=== PATIENT | female | born 1975 | race Native Hawaiian/Other Pacific Islander ===

== ENCOUNTER 2016-06-03 05:21 | Inpatient (IN) | payer OTHER ==
[2016-06-03] MEDS ORDERED: PITOCin/NS 20 UNIT/1000ML DRIP 20,000 MILLIUNITS/1,000 ML BAG IV ONE (05:40)
[2016-06-03] MEDS: PITOCin/NS 20 UNIT/1000ML DRIP 20 UNIT/1,000 ML BAG IV SCH ×2 (05:46→06:48)
--- NOTE | 2016-06-03 05:59 | Procedure Note ---
OB Delivery Note - Delivery Date of Delivery: 06/03/16 Surgeon: NICA GEORGE Estimated blood loss: 200cc - Vaginal Delivery presentation: vertex Delivery position: OA Intrapartum events: no care, labor-<37 weeks, bleeding site- undetermine Delivery induction: none Delivery monitor: external FHT, external uterine Route of delivery: Delivery placenta: spontaneous Delivery cord: other (Very Short cord) Episiotomy: none Delivery laceration: none Anesthesia: none - Infant A at 1 minute: 8 at 5 minutes: 9 Gender: Female (Del @ 05:42, weight is 1710 g or 3#7 lbs)
--- NOTE | 2016-06-03 06:03 | History and Physical Report ---
History of Present Illness Date of examination: 06/03/16 Date of admission: 06/03/16 05:22 Chief complaint: PPT labor History of present illness: 40-year-old status post precipitous delivery at unsure gestational age, she had no care this . Past History Past Medical History: no pertinent history Past Surgical History: no surgical history - Obstetrical History : 4 - Vital Signs Vital signs: Vital Signs Pulse Pulse Ox 76 98 06/03/16 05:27 06/03/16 05:27 Temp Pulse Resp BP Pulse Ox 97.9 F 68 20 121/79 97 06/03/16 05:33 06/03/16 05:57 06/03/16 05:33 06/03/16 05:57 06/03/16 05:37 - Physical Exam Abdomen: Positive: normal appearance, soft. Negative: distention, tenderness, guarding, rigidity Genitourinary (Female): Positive: normal external genitalia Extremities: Positive: normal Results All other labs normal. Assessment and Plan PPD# 0 s/p Precipitate delivery at unknown GA -Doing well P: -Admit -Obtain labs including prental labs -Routine care - Patient Problems (1) Precipitous delivery, delivered (current hospitalization) Current Visit: Yes Status: Acute (2) No care in current in third trimester Current Visit: Yes Status: Acute
[2016-06-03] MEDS ORDERED: PHENERGAN PO PRN (06:04)
[2016-06-03] MEDS ORDERED: PHENERGAN PR PRN (06:04)
[2016-06-03] MEDS ORDERED: TUCKS PAD TP PRN (06:04)
[2016-06-03] MEDS ORDERED: TYLENOL PO PRN (06:04)
[2016-06-03] MEDS ORDERED: BENADRYL PO PRN (06:04)
[2016-06-03] MEDS ORDERED: LANSINOH TP PRN (06:04)
[2016-06-03] MEDS ORDERED: DERMOPLAST TP PRN (06:04)
[2016-06-03] MEDS ORDERED: ZOFRAN IV PRN (06:04)
[2016-06-03] MEDS ORDERED: MILK OF MAGNESIA PO PRN (06:04)
[2016-06-03] MEDS ORDERED: ANUCORT-HC PR PRN (06:04)
[2016-06-03] MEDS ORDERED: DULCOLAX PR PRN (06:04)
[2016-06-03] MEDS: MOTRIN PO SCH ×3 (06:24→23:50)
[2016-06-03 06:25] LABS: Hematocrit 37.3 % (30.3-42.9); Hemoglobin 12.5 gm/dl (10.1-14.3)
[2016-06-03] MEDS ORDERED: SODIUM CHLORIDE FLUSH SYRINGE 10 ML IV PRN (07:00)
[2016-06-03] MEDS ORDERED: SENOKOT S PO SCH (07:00)
[2016-06-03 07:24] LABS: HIV-1 Antigen p24 Non React (Non React); HIVR-1/2 Ab Non React (Non React)
[2016-06-03] MEDS ORDERED: NACL P/F VIAL (10 ML) IV ONE (08:31)
[2016-06-03] MEDS: FEOSOL PO SCH ×2 (13:20→23:50)
[2016-06-03] MEDS: PRENATAL VITAMIN PO SCH (13:20)
[2016-06-03] MEDS: COLACE PO SCH ×2 (13:22→23:50)
[2016-06-03 18:15] LABS: Hematocrit 34.5 % (30.3-42.9); Hemoglobin 11.3 gm/dl (10.1-14.3)
[2016-06-04] MEDS: MOTRIN PO SCH (05:59)
[2016-06-04] MEDS ORDERED: BOOSTRIX IM ONE (06:04)
[2016-06-04] MEDS ORDERED: M-M-R II VACCINE SUB-Q ONE (06:04)
--- NOTE | 2016-06-04 10:41 | Progress Note ---
Assessment and Plan - Patient Problems (1) (normal spontaneous vaginal delivery) Onset Date: 06/04/16 Current Visit: Yes Status: Resolved Plan to address problem: A: S/P - PPD #1 Doing well No care P: May go home today (2) No care in current in third trimester Onset Date: 06/04/16 Current Visit: Yes Status: Resolved Subjective - Subjective Date of service: 06/04/16 Principal diagnosis: s/p - PPD #1 Interval history: No complaints, feeling well. Bleeding improved. Patient reports: appetite normal, voiding normally, pain well controlled, flatus , ambulating normally : doing well, in NICU Objective - Vital Signs Latest vital signs: Vital Signs Temp Pulse Pulse Resp BP 06/04/16 08:08 98.1 F 72 18 94/60 06/03/16 20:40 98.6 F 74 16 120/78 06/03/16 16:55 98.4 F 68 18 109/64 06/03/16 12:50 98.3 F 79 18 102/71 Intake and Output 06/03/16 06/04/16 06/04/16 22:59 06:59 14:59 Intake Total 360 5 Output Total 800 800 Balance -440 -795 Intake: Oral 360 5 Output: Urine 800 800 Void 800 800 Other: Total, Intake Amount 360 5 Total, Output Amount 300 800 # Voids Void 1 3 - Exam Breasts: Present: deferred Cardiovascular: Present: Regular rate Lungs: Present: Clear to auscultation Abdomen: Present: normal appearance, soft Uterus: Present: normal, firm, fundal height below umbilicus Extremities: Present: normal - Labs Labs: Laboratory Tests 06/03/16 06/03/16 06/03/16 05:15 05:15 05:15 Hgb 12.5 Hct 37.3 RPR Hep Bs Antigen Non-reactive Hepatitis C Antibody Non-reactive HIV 1&2 Antibody Rapid HIV P24 Antigen Rubella IgG Antibody Immune Blood Type Antibody Screen 06/03/16 06/03/16 06/03/16 05:15 05:15 05:15 Hgb Hct RPR Nonreactive Hep Bs Antigen Hepatitis C Antibody HIV 1&2 Antibody Rapid Non react HIV P24 Antigen Non react Rubella IgG Antibody Blood Type O POSITIVE Antibody Screen Negative 06/03/16 18:00 Hgb 11.3 Hct 34.5 RPR Hep Bs Antigen Hepatitis C Antibody HIV 1&2 Antibody Rapid HIV P24 Antigen Rubella IgG Antibody Blood Type Antibody Screen
--- NOTE | 2016-06-04 10:42 | Discharge Summary ---
Providers - Providers Date of Admission: 06/03/16 05:22 Date of discharge: 06/04/16 Attending physician: BRADEN CRISTOBAL MD Enrique Primary care physician: [employer] Hospitalization Reason for admission: active labor, IUP - , labor Delivery: Episiotomy: none Laceration: none Other procedures: none complications: none Discharge diagnosis: delivery baby: male Hospital course: Unremarkable except for No care. Baby in NICU. Condition at discharge: Good Disposition: DISCHARGED TO HOME OR SELFCARE - Discharge Diagnoses (1) (normal spontaneous vaginal delivery) Status: Resolved (2) No care in current in third trimester Status: Resolved Plan - Discharge Medications Prescriptions: HYDROcodone/APAP 5-325 [[place] 5/325] 1 each PO Q6HR PRN #10 tablet PRN Reason: Pain Ibuprofen [Motrin 600 MG tab] 600 mg PO Q8H PRN #30 tablet PRN Reason: Pain Multivitamin with Iron [Multivitamins with Iron] 1 each PO DAILY #30 tablet - Provider Discharge Summary Activity: routine, no sex for 6 weeks, no heavy lifting 4 weeks, no strenuous exercise Diet: routine Instructions: routine Additional instructions: [] Smoking cessation referral if applicable(refer to patient education folder for contact #) [] Refer to [facility]'s [facility] Booklet Call your doctor immediately for: * Fever > 100.5 * Heavy vaginal bleeding ( >1 pad per hour) * Severe persistent headache * Shortness of breath * Reddened, hot, painful area to leg or breast * Drainage or odor from incision. * Keep incision clean and dry at all times and follow doctor's instructions regarding bathing/showering - Follow up plan Follow up: GISELLA SEGOVIA MD [Primary Care Provider] - 7 Days BRADEN CRISTOBAL MD [Staff Physician] - 6 Weeks
[2016-06-04] MEDS: COLACE PO SCH (11:52)
[2016-06-04] MEDS: PRENATAL VITAMIN PO SCH (11:52)
[2016-06-04] MEDS: FEOSOL PO SCH (11:52)
[2016-06-04 13:15] VITALS: BP 110/70
== END 2016-06-04 12:45 | disposition home or self-care (01) | DRG 774 ==
LOC: TRG 05:21 → LD 05:22 → OB 07:35
PROVIDERS: ADMIT Obstetrics & Gynecology; ATTEND Obstetrics & Gynecology
PROC: 10E0XZZ Delivery of Products of Conception, External Approach (ICD-10-PCS; principal; 2016-06-03)
DX: O60.14X0 Preterm labor third trimester with preterm delivery third trimester, not applicable or unspecified (principal); O67.9 Intrapartum hemorrhage, unspecified; O69.89X0 Labor and delivery complicated by other cord complications, not applicable or unspecified; O62.3 Precipitate labor; O09.33 Supervision of pregnancy with insufficient antenatal care, third trimester; O09.523 Supervision of elderly multigravida, third trimester; Z37.0 Single live birth; Z3A.37 37 weeks gestation of pregnancy
CPT/HCPCS: 36415; 85014; 85018; 86592; 86706; 86762; 86803; 86850; 86900; 86901; 87806; 88307; J2590